=== PATIENT | male | born 1970 | race Caucasian/White ===

== ENCOUNTER 2019-01-01 21:00 | Observation (INO) | payer SELFPAY ==
[2019-01-01 21:01] VITALS: BP 145/101; PULSE 94; RESP 16; TEMP 36.5; O2SAT 98; BMI 26.8
[2019-01-01 21:04] VITALS: RESP 16
--- NOTE | 2019-01-01 21:36 | EKG12_ITS ---
Test Reason : Blood Pressure : / mmHG Vent. Rate : 065 BPM Atrial Rate : 065 BPM P-R Int : 148 ms QRS Dur : 082 ms QT Int : 408 ms P-R-T Axes : 062 039 032 degrees QTc Int : 424 ms Normal sinus rhythm Normal ECG Confirmed by FRANSISCO DEL REAL, DANIELLE ([id number]), manuscript editor FESTUS CARR ([id number]) on 01/03/2019 8:59:09 AM Referred By: WILLIE Confirmed By:DANIELLE MOODY MD
--- NOTE | 2019-01-01 21:38 | ED.VIS.GEN ---
History of Present Illness Chief Complaint: Syncope Detail of Chief Complaint: X4 Informant: Patient Onset: Today Timing: Intermittent Quality: Lightheaded preceding syncopal episode Location: Once at work and 4 times at home Current Severity: Mild Maximum Severity: Severe Worsened by: Nothing Relieved by: Nothing Associated Symptoms: Chest pain and left upper extremity tingling Narrative: Patient is a 48-year-old male who smokes 1/2 pack/day presents with syncopal episode. He states while at work at approximately 930 to 10:30 AM he became lightheaded. He did not think much of it. On his way into his home after work he became lightheaded and was concerned he would pass out. He was concerned he would fall and l lied on the floor. He took off his shoes. states he was diaphoretic. He reported central chest pain and left arm tingling. He was out for several minutes. There was no seizure activity noted. There is no incontinence of urine or stool. He had 3 additional episodes. One occurred after walking down the steps one occurred while in the shower and one occurred after he walked up to his bedroom. Those episodes were not witnessed. He denies black or maroon stool. He presently denies shortness of breath or chest pain. There is no family history of coronary disease. He has no history of PE or DVT. He denies leg pain, swelling or discoloration. Prior similar symptoms: No Recent Illness/Hospitalization: No - Past Medical History (1) No significant past medical history Status: Acute Past Medical History - Allergies and Home Meds Allergies/Adverse Reactions: Allergies aspirin Adverse Reaction (Verified 01/01/19 21:23) Other NOSEBLEED Primary Care Physician: Care Physician,No Primary [Primary Care Provider] - Prior records reviewed: No - There are none Past Medical History: None Surgical History: no surgical history Lives: Spouse/ Significant Other Smoking Status: Current every day smoker Alcohol: Sober Drugs: Marijuana Review of Systems General: Denies: Chills, Fever, Sweats Eyes: Denies: Visual changes - bilaterally, Diplopia ENT: Denies: Rhinorrhea, Sore throat Cardiovascular: Reports: Chest pain. Denies: Palpitations, Heart racing, -, - Respiratory: Reports: Dyspnea. Denies: Cough, Sputum, Dyspnea on exertion, Orthopnea, Paroxysmal nocturnal dyspnea, -, - Gastrointestinal: Denies: Abdominal pain, Nausea, Vomiting, Diarrhea, Melena, Hematochezia Genitourinary: Denies: Dysuria, Hematuria, Frequency Musculoskeletal: Denies: Myalgias, Arthralgias, Neck pain, Back pain, Swelling, Extremity Pain Skin: Denies: Rash, Abscess, Abrasions, Wounds Neurological: Denies: Headache, Weakness, Numbness Hematologic: Denies: Easy bruising, Easy bleeding Physical Exam Vital Signs/Narrative: Vital Signs Temp Pulse Resp BP Pulse Ox 01/01/19 21:04 16 01/01/19 21:01 97.7 F L 94 16 145/101 H 98 Inital Vital Signs reviewed: Yes General: Well nourished, Well developed, No Acute Distress Head: Normocephalic, Atraumatic Eyes: Perrl, EOMI ENT: Moist mucous membranes, No rhinorrhea Neck: Supple, Nontender Cardiovascular: Regular rate, Regular rhythm, No murmurs, Normal S1, Normal S2 Respiratory: No distress, CTA bilaterally, Chest nontender Abdomen: Soft, Nontender, Nondistended, Normal bowel sounds Back: Nontender, Normal Inspection Extremities: Nontender, No edema, - - There is no asymmetry, swelling, discoloration, leg vein distention, palpable cords or tenderness along the distribution of the deep venous system. Skin: Normal color, No rash, No Trauma. Negative for: Cyanosis, Diaphoresis, Jaundice Neurological: Alert, Oriented x3, Cranial nerves II-XII grossly intact, Normal Strength, Normal Sensation Psychological: Normal affect, Normal Mood Diagnostic/Tx/Re-eval Laboratory Results 01/01/19 01/01/19 21:30 21:30 WBC 11.4 H RBC 4.79 Hgb 15.0 Hct 43.6 MCV 91.0 MCH 31.3 MCHC 34.4 RDW Std Deviation 41.2 RDW Coeff of Chandni 12.3 Plt Count 205 MPV 10.7 Immature Gran % (Auto) 0.400 Neut % (Auto) 73.9 H Lymph % (Auto) 17.3 L [place] % (Auto) 7.5 Eos % (Auto) 0.5 Baso % (Auto) 0.4 Absolute Neuts (auto) 8.4 H Absolute Lymphs (auto) 1.98 Nucleated RBC % 0 Sodium 134 L Potassium 3.6 Chloride 105 Carbon Dioxide 20.0 L Anion Gap 9 BUN 23 H Creatinine 1.08 Estim Creat Clear Calc 81.81 Est GFR (MDRD) Af Amer 94 Est GFR (MDRD) Non-Af 78 BUN/Creatinine Ratio 21.3 H Glucose 113 H Calcium 8.9 Troponin I < 0.015 White count slightly elevated. This is nonspecific. Renal functions normal. First troponin is normal. - Medical Decision Making Symptoms are suggestive of vasovagal. However with the first episode occurring with activity he will need admission and work-up. He has had 4 separate episodes which is also concerning. Will obtain EKG and appropriate blood work. Once tests have been reviewed will contact hospitalist for admission. With one near syncopal episode for syncopal episodes and one with walking will need to admit patient for further monitoring and work-up i.e. echocardiogram. Hospitalist was paged. ED Disposition - Plan for ED Patient: Disposition: Acute Care Hospital [facility] Diagnosis: Syncope and collapse Referrals: Care Physician,No Primary [Primary Care Provider] -
[2019-01-01] MEDS: 0.9% Normal Saline 1,000 ML 250 ML IV (21:49)
[2019-01-01 21:57] LABS: Absolute Lymphocyte Count 1.98 X10^3/uL (0.83-4.51); Absolute Neutrophil Count 8.4 X10^3/uL (2.0-7.7); Basophil# 0.05 X10^3/uL; Basophil% 0.4 % (0-1); Eosinophil# 0.06 X10^3/uL; Eosinophils% 0.5 % (0-5); Hematocrit 43.6 % (40-54); Lymphocyte # 1.98 X10^3/ul (4.0); Lymphocyte % 17.3 % (19-41); Mean Corp Hgb Conc 34.4 g/dL (32-36); Mean Corpuscular Hgb 31.3 pg (27.0-32.0); Mean Platelet Vol. 10.7 fl (6.2-12.0); Monocyte# 0.86 X10^3/uL; Monocyte% 7.5 % (0-10); NRBC Flagged by Analyzer 0 % (0-5); Neutrophil # 8.43 X10^3/uL (2.7-7.7); Neutrophil % 73.9 % (47-70); Platelet Count 205 K/mm3 (150-450); RBC Distribution Width CV 12.3 % (11.6-14.6); RBC Distribution Width SD 41.2 fl (35.1-43.9); Red Blood Count 4.79 M/mm3 (4.6-6.2); White Blood Count 11.4 K/mm3 (4.4-11.0)
[2019-01-01 22:10] LABS: Anion Gap 9 (5-15); BUN 23 mg/dL (7-18); BUN/Creat Ratio 21.3 RATIO (10-20); Calcium,Total 8.9 mg/dL (8.5-10.1); Chloride 105 mmol/L (98-107); Creatinine, Serum 1.08 mg/dL (0.70-1.30); EST Glomerular Filtration Rate 78 mL/min (>60); Est Glom Filt Rate - Afr Amer 94 mL/min (>60); Estimated Creatinine Clearance 81.81 ml/min; Glucose 113 mg/dL (74-106); Potassium 3.6 mmol/L (3.5-5.1); Sodium Level 134 mmol/L (136-145)
--- NOTE | 2019-01-01 22:48 | ED.RN ---
PAGED HOSPITALIST FOR ADMISSION
--- NOTE | 2019-01-01 23:01 | PCM.HP.STD ---
Problem List (1) Smoker Status: Chronic (2) Syncope and collapse Status: Acute History of Present Illness Date of Admission: 01/01/19 Chief Complaint: syncope , chest pain The patient is a 48 year old M [male patient with no past medical history who is a chronic smoker presents to the emergency room after several episodes of syncope earlier today. Onset of this dizziness began this morning around 930 while at work he sat down to take a break he described to his employer as feeling dizzy and lightheaded yet he did not pass out at that time. He recovered from that episode and was feeling better by noon and continue to work throughout the day and finished the day only to arrive at home drenched in sweat and looking very tired and sweaty according to his spouse. He then went toward the bedroom after taking off his shirt and went toward the floor and passed out for period of 5 minutes according to his . After recover from this episode he took a shower and passed out there as well and states he had 2 more episodes of syncope after the shower. He then came to the emergency room for evaluation. With his last few episodes of syncope he describes chest heaviness and pressure with tingling in his left shoulder. No nausea vomiting or diarrhea. He does not have a normal primary care physician at this time and has not been seen for preventive care. He will be admitted to the progressive care unit for further cardiac work-up and observation.] Past Medical History Past Medical History (Chronic Problems): Chronic Problems Smoker (Chronic) Allergies aspirin Adverse Reaction (Verified 01/01/19 21:23) Other NOSEBLEED Home Medications: Ambulatory Orders Medication Instructions Recorded NK 01/01/19 Surgical History: no surgical history Lives: Spouse/ Significant Other Smoking Status: Current every day smoker Alcohol: Sober Drugs: Marijuana - *Family History Maternal History Items: No pertinent history Review of Systems Constitutional: Denies: Chills, Fever, Weight Change HEENT: Denies: Head Aches, Sinus Congestion, Sinus Drainage Cardiovascular: Reports: Chest Pain, Chest Pressure, Chest Tightness, Syncope. Denies: Palpitations Respiratory: Denies: Cough, Shortness of breath at rest, Sputum production Gastrointestinal: Denies: Abdominal Pain, Nausea, Vomiting Genitourinary: Denies: Dysuria Musculoskeletal: Denies: Joint Pain, Joint Tenderness Skin: Denies: Rash, Wounds Neurological: Denies: Numbness, Tingling, Focal weakness Psychiatric: Denies: Anxiety, Depression, Homicidal Ideations, Suicidal Ideations Hematologic/ Lymphatic: Denies: Easy Bruising, Easy Bleeding VTE Information - Inpt Only VTE Present on Admission: No VTE Mechan Device Prophylaxis: None VTE Pharm Prophylaxis ordered?: Yes Patient Problems: Active and Suspected Problems No significant past medical history (Acute) Syncope and collapse (Acute) - Physical Exam General: Alert, Oriented x3, Cooperative HEENT: Atraumatic, PERRLA, EOMI, Normocephalic Neck: Supple Lungs: Clear to auscultation, Normal air movement, No rhonchi, No wheeze, No rales Cardiovascular: Regular rate, Regular Rhythm, Normal S1, Normal S2, No murmurs Abdomen: Bowel Sounds Present, Soft, Non Tender Extremities: No edema Skin: No rashes, No breakdown Musculoskeletal: No Tenderness to Palpation of Joints or Extremities Neurological: Cranial nerves II-XII grossly intact Psych/Mental Status: Normal Affect, Appropriate Vital Signs Temp Pulse Resp BP Pulse Ox 97.7 F L 94 16 145/101 H 98 01/01/19 21:01 01/01/19 21:01 01/01/19 21:04 01/01/19 21:01 01/01/19 21:01 Oxygen Delivery Method Room Air Weight: 176 lb 9.444 oz Body Mass Index (BMI) 26.8 Laboratory Tests Past 24 Hrs 01/01/19 01/01/19 21:30 21:30 WBC 11.4 H RBC 4.79 Hgb 15.0 Hct 43.6 MCV 91.0 MCH 31.3 MCHC 34.4 RDW Std Deviation 41.2 RDW Coeff of [place] 12.3 Plt Count 205 MPV 10.7 Immature Gran % (Auto) 0.400 Neut % (Auto) 73.9 H Lymph % (Auto) 17.3 L [place] % (Auto) 7.5 Eos % (Auto) 0.5 Baso % (Auto) 0.4 Absolute Neuts (auto) 8.4 H Absolute Lymphs (auto) 1.98 Nucleated RBC % 0 Sodium 134 L Potassium 3.6 Chloride 105 Carbon Dioxide 20.0 L Anion Gap 9 BUN 23 H Creatinine 1.08 Estim Creat Clear Calc 81.81 Est GFR (MDRD) Af Amer 94 Est GFR (MDRD) Non-Af 78 BUN/Creatinine Ratio 21.3 H Glucose 113 H Calcium 8.9 Troponin I < 0.015 Assessment/Plan All Active Problems No significant past medical history (Acute) Syncope and collapse (Acute) Plan 1. Chest pain?admit to progressive care unit, cycle cardiac markers, or size nuclear stress test in the a.m. we will order as needed nitroglycerin, start aspirin 81 mg daily check fasting lipid profile CBC BMP in the morning 2. Syncope continue telemetry monitoring for any further episodes continue rehydration, patient states he feels much better at this time after having received IV fluids 3. Smoking?cessation strongly encouraged 4. DVT prophylaxis?low molecular weight heparin Code Visit OBSV E&M: [id number] Initial observation care L2
[2019-01-01 23:12] VITALS: BP 139/84; PULSE 64; RESP 18; O2SAT 96
[2019-01-01 23:23] VITALS: BP 139/84; PULSE 75; RESP 16; O2SAT 98
[2019-01-01 23:40] VITALS: BP 120/74; PULSE 72; RESP 16; TEMP 36.7; O2SAT 97
[2019-01-01 23:42] VITALS: BP 131/68
[2019-01-01 23:53] VITALS: BMI 26.9
[2019-01-01 23:57] VITALS: BMI 26.9
[2019-01-02 00:03] VITALS: PULSE 77
--- NOTE | 2019-01-02 00:25 | EKG12_ITS ---
Test Reason : CP ADMISSION Blood Pressure : / mmHG Vent. Rate : 067 BPM Atrial Rate : 067 BPM P-R Int : 148 ms QRS Dur : 088 ms QT Int : 420 ms P-R-T Axes : 046 025 005 degrees QTc Int : 443 ms Normal sinus rhythm Normal ECG No previous ECGs available Confirmed by DANIEL HEADLEY ([id number]), non linear editor FESTUS CARR ([id number]) on 01/04/2019 2:54:59 PM Referred By: DANIELLE BHAGAT Confirmed By:DANIEL HEADLEY
[2019-01-02] MEDS: 0.9% Normal Saline 1,000 ML 125 ML IV (01:51)
[2019-01-02 03:00] VITALS: PULSE 59
[2019-01-02 03:44] LABS: Absolute Lymphocyte Count 2.59 X10^3/uL (0.83-4.51); Absolute Neutrophil Count 2.9 X10^3/uL (2.0-7.7); Basophil# 0.05 X10^3/uL; Basophil% 0.8 % (0-1); Eosinophil# 0.32 X10^3/uL; Eosinophils% 4.9 % (0-5); Hematocrit 40.9 % (40-54); Hemoglobin 14.1 g/dL (13.0-16.5); Lymphocyte # 2.59 X10^3/ul (4.0); Lymphocyte % 39.4 % (19-41); Mean Corp Hgb Conc 34.5 g/dL (32-36); Mean Corpuscular Hgb 31.6 pg (27.0-32.0); Mean Corpuscular Volume 91.7 fL (80-94); Mean Platelet Vol. 10.3 fl (6.2-12.0); Monocyte# 0.71 X10^3/uL; Monocyte% 10.8 % (0-10); NRBC Flagged by Analyzer 0 % (0-5); Neutrophil # 2.89 X10^3/uL (2.7-7.7); Neutrophil % 43.8 % (47-70); Platelet Count 178 K/mm3 (150-450); RBC Distribution Width CV 12.5 % (11.6-14.6); RBC Distribution Width SD 41.9 fl (35.1-43.9); Red Blood Count 4.46 M/mm3 (4.6-6.2); White Blood Count 6.6 K/mm3 (4.4-11.0)
[2019-01-02 04:04] LABS: BUN 17 mg/dL (7-18); BUN/Creat Ratio 19.4 RATIO (10-20); Calcium,Total 8.2 mg/dL (8.5-10.1); Chloride 110 mmol/L (98-107); Cholesterol 158 mg/dL (200); Creatinine, Serum 0.88 mg/dL (0.70-1.30); EST Glomerular Filtration Rate 99 mL/min (>60); Est Glom Filt Rate - Afr Amer 120 mL/min (>60); Glucose 82 mg/dL (74-106); Potassium 3.7 mmol/L (3.5-5.1); Sodium Level 141 mmol/L (136-145); Triglycerides 67 mg/dL
[2019-01-02 04:05] LABS: Anion Gap 8 (5-15); High Density Lipoprotein 38 mg/dL; Thyroid Stim Hormone (TSH) 0.48 uIU/mL (0.358-3.74); Very Low Density Lipoprotein 13 mg/dL (5-40)
[2019-01-02 05:29] VITALS: BP 124/78; PULSE 63; RESP 16; TEMP 37.2; O2SAT 98
--- NOTE | 2019-01-02 05:55 | EKG12_ITS ---
Test Reason : AM EKG Blood Pressure : / mmHG Vent. Rate : 065 BPM Atrial Rate : 065 BPM P-R Int : 150 ms QRS Dur : 086 ms QT Int : 406 ms P-R-T Axes : 052 035 030 degrees QTc Int : 422 ms Normal sinus rhythm Normal ECG When compared with ECG of 02-JAN-2019 00:16, MANUAL COMPARISON REQUIRED, DATA IS UNCONFIRMED Confirmed by DANIEL HEADLEY ([id number]), editor house organ FESTUS CARR ([id number]) on 01/04/2019 2:55:25 PM Referred By: OLAYINKA Confirmed By:DANIEL HEADLEY
--- NOTE | 2019-01-02 07:10 | PCM.PROGNOTE ---
Patient Problems: Active and Suspected Problems No significant past medical history (Acute) Syncope and collapse (Acute) Subjective: The patient is a 48-year-old male with no significant past medical history other than tobacco dependence, on no chronic medications, who presented to the emergency department at [facility] on 01/01/2019 complaining of episodic lightheadedness at work earlier in the day. He finished his shift and when he got home he was very sweaty and tired. He had a syncopal episode when walking to his bedroom and his stated he was out approximately 5 minutes. He awoke and went to take a shower and passed out in the shower. Following the shower he passed out 2 additional times and had chest pain with tingling in his left shoulder. He then decided to come to the ED. vital signs at presentation to the emergency room were temperature 97.7, pulse rate 94, blood pressure 145/101, respiratory rate 16 and he was 98% saturated on room air. Significant labs included a mildly elevated white blood cell count at 11.4 with 74% neutrophils, sodium of 134, serum bicarb of 20, BUN of 23 with creatinine of 1.08, troponin of less than 0.015. He was admitted to a monitored bed on PCU and serial cardiac enzymes were ordered. He was hydrated and scheduled for a stress test in the AM. - Physical Exam Vital Signs Temp Pulse Resp BP Pulse Ox 98.9 F 63 16 124/78 H 98 01/02/19 05:29 01/02/19 05:29 01/02/19 05:29 01/02/19 05:29 01/02/19 05:29 Oxygen Delivery Method Room Air Weight: 177 lb 0.499 oz Body Mass Index (BMI) 26.9 Intake and Output for Last 24 Hours 12/31/18 01/01/19 01/02/19 23:59 23:59 23:59 Intake Total 340 / 340 914 / 914 Balance 340 / 340 914 / 914 Laboratory Tests Past 24 Hrs 01/01/19 01/01/19 01/02/19 21:30 21:30 00:49 WBC 11.4 H RBC 4.79 Hgb 15.0 Hct 43.6 MCV 91.0 MCH 31.3 MCHC 34.4 RDW Std Deviation 41.2 RDW Coeff of Chandni 12.3 Plt Count 205 MPV 10.7 Immature Gran % (Auto) 0.400 Neut % (Auto) 73.9 H Lymph % (Auto) 17.3 L [place] % (Auto) 7.5 Eos % (Auto) 0.5 Baso % (Auto) 0.4 Absolute Neuts (auto) 8.4 H Absolute Lymphs (auto) 1.98 Nucleated RBC % 0 Sodium 134 L Potassium 3.6 Chloride 105 Carbon Dioxide 20.0 L Anion Gap 9 BUN 23 H Creatinine 1.08 Estim Creat Clear Calc 81.81 Est GFR (MDRD) Af Amer 94 Est GFR (MDRD) Non-Af 78 BUN/Creatinine Ratio 21.3 H Glucose 113 H Calcium 8.9 Troponin I < 0.015 < 0.015 Triglycerides Cholesterol LDL Cholesterol VLDL Cholesterol HDL Cholesterol TSH 01/02/19 01/02/19 03:30 03:30 WBC 6.6 RBC 4.46 L Hgb 14.1 Hct 40.9 MCV 91.7 MCH 31.6 MCHC 34.5 RDW Std Deviation 41.9 RDW Coeff of [place] 12.5 Plt Count 178 MPV 10.3 Immature Gran % (Auto) 0.300 Neut % (Auto) 43.8 L Lymph % (Auto) 39.4 [place] % (Auto) 10.8 H Eos % (Auto) 4.9 Baso % (Auto) 0.8 Absolute Neuts (auto) 2.9 Absolute Lymphs (auto) 2.59 Nucleated RBC % 0 Sodium 141 Potassium 3.7 Chloride 110 H Carbon Dioxide 23.0 Anion Gap 8 BUN 17 Creatinine 0.88 Estim Creat Clear Calc 100.40 Est GFR (MDRD) Af Amer 120 Est GFR (MDRD) Non-Af 99 BUN/Creatinine Ratio 19.4 Glucose 82 Calcium 8.2 L Troponin I < 0.015 Triglycerides 67 Cholesterol 158 LDL Cholesterol 107 VLDL Cholesterol 13 HDL Cholesterol 38 L TSH 0.48 Medical Necessity - Tobacco Use Smoking Status: Current every day smoker Assessment/Plan All Active Problems No significant past medical history (Acute) Syncope and collapse (Acute)
[2019-01-02 08:40] VITALS: PULSE 75
[2019-01-02] MEDS: 0.9% NaCl Peripheral Flush Adult/Peds IV (08:55)
--- NOTE | 2019-01-02 09:00 | STRESSREP_ITS ---
Stress Test Report Date: 01-02-19 Procedure: Exercise tolerance test/imaging study Indications: Chest pain; dizziness; syncope Consent: Per the patient Procedure: The patient exercised on a Jasmeet protocol for 10 minutes completing Stage III and 1 minute of Stage IV achieving a peak heart rate of 166 bpm (95 % predicted maximal heart rate) with a peak blood pressure 150/82 mmHg and a peak MET capacity of 11 METs. The baseline ECG demonstrated normal sinus rhythm. The peak exercise ECG demonstrated no obvious ECG changes. There were no cardiac dysrhythmias pretest, during exercise, or recovery. The functional capacity was considered good. There was no complaint of chest discomfort during exercise or recovery. The examination was discontinued secondary to dyspnea. Impression: 1. Technically adequate (percent predicted maximal heart rate greater than 85%) exercise tolerance test 2. Peak exercise ECG with no obvious ECG changes 3. There were no cardiac dysrhythmias pretest, during exercise, or recovery 4. Nuclear images pending Myocardial perfusion imaging study: Technique: The patient was injected with 11.5 mCi of technetium 99m Cardiolite and subsequently rest SPECT Cardiolite nuclear imaging was obtained in the horizontal long, vertical long, and short axis views. The patient exercised on a Jasmeet protocol for 10 minutes completing Stage III and 1 minute of Stage IV achieving a peak heart rate of 166 bpm (95 % predicted maximal heart rate) with a peak blood pressure 150/82 mmHg and a peak MET capacity of 11 METs. The patient was injected with 33.4 mCi of technetium 99m Cardiolite and subsequently stress SPECT Cardiolite nuclear imaging was obtained in the horizontal long, vertical long, and short axis views. A gated Cardiolite study at peak stress was obtained. Interpretation: Rest and stress SPECT Cardiolite nuclear imaging status post realignment, normalization, and attenuation correction, demonstrates the appearance of relative uniform tracer uptake and myocardial perfusion appearing within normal limits. There is end systolic thickening and brightening. The gated Cardiolite study demonstrates myocardial thickening and inward wall motion. The reported LVEF is 54 %. Impression: 1. Rest and stress SPECT Cardiolite nuclear imaging demonstrate relative uniform tracer uptake and myocardial perfusion appearing within normal limits. 2. The gated Cardiolite study reports an LVEF of 54 %. This note was generated with agreement24 [id number] software. It may contain incorrect words, spelling, and punctuation that were not noted in checking the note before signing.
[2019-01-02 10:10] VITALS: BP 121/76; PULSE 62; RESP 16; TEMP 36.5; O2SAT 99
[2019-01-02] MEDS: Enoxaparin 40 MG/0.4 ML Syringe SC (10:10)
[2019-01-02 10:12] VITALS: BP 121/76; BP 126/88; BP 131/88; PULSE 55; PULSE 62; PULSE 64
[2019-01-02 10:31] LABS: Bedside Glucose 83 mg/dL (70-110)
--- NOTE | 2019-01-02 14:29 | DCINST_ITS ---
- Discharge Diagnoses Current Active Problems: Current Active and Chronic Problems No significant past medical history (Acute) Syncope and collapse (Acute) Smoker (Chronic) You will use the following diet at home:: Other - stay away from simple carbs with a high glycemic index. Your food should be the consistency of: Regular Your liquids should be the consistency of: Regular/Thin Discharge Activity: Return to Normal Activity Call your doctor if you observe: Fever of 101 or Higher, Shortness of breath, Dizziness, Fainting spells, Swelling in the ankles, Chest pain, Calf discomfort Additional Instructions: You were dehydrated at admission to the hospital. Your kidney function was off and the sodium was low. I think this what caused you to pass out but, I can not prove this. When you are standing the blood goes to your feet and not to your head and you get lightheaded, sweaty, nauseated and then you pass out. Other things that can cause these symtoms are low blood sugars, problems with the rhythm of your heart, seizures.... You need to drinnk enough water during the day to keep the urine a pale yellow. If it is darker yellow or orange colored or tea colored then you are not drinnking enough. If you stay hydrated and you still have passing out episodes then we would need to do more testing......like an EEG to r/o seizures, an event monitor to monitor your heart rate for 30 days and we would need to check out the pancreas.....it produces insulin and sometimes you can have a tumor and it will secrete too much insulin and drop the blood sugars. Allergies/Adverse Reactions: Allergies aspirin Adverse Reaction (Verified 01/01/19 21:23) Other NOSEBLEED Medications to take at Discharge NK 01/01/19 Primary Care Physician: Care Physician,No Primary [Primary Care Provider] - Test Results: Test results from this visit will be discussed in further detail at your follow- up appointment, if applicable. Proposed Discharge Date: 01/02/19
--- NOTE | 2019-01-02 14:40 | DS.PCM_ITS ---
Discharge Date and Diagnosis - Problem List Patient Problems: Active and Suspected Problems Hyponatremia (Acute) Sinus bradycardia (Acute) Dehydration (Acute) Date of Admission: 01/01/19 Date of Discharge: 01/02/19 - Primary Discharge Diagnosis Active and Suspected Problems Hyponatremia (Acute)-resolved Sinus bradycardia (Acute)-asymptomatic Dehydration (Acute)-resolved Syncope and collapse (Acute) suspected to be due to orthostatic hypotension - Secondary Discharge Diagnosis Chronic Problems Smoker (Chronic) Reported Hypoglycemic episodes Hospital Course and Treatment Imaging Results: 01/02/19 05:55 Nuclear Stress Test - Treadmil [NM] AM (NON MEDS) Laboratory Tests 01/02/19 01/02/19 01/02/19 Range/Units 10:28 03:30 03:30 WBC 6.6 (4.4-11.0) K/mm3 RBC 4.46 L (4.6-6.2) M/mm3 Hgb 14.1 (13.0-16.5) g/dL Hct 40.9 (40-54) % MCV 91.7 (80-94) fL MCH 31.6 (27.0-32.0) pg MCHC 34.5 (32-36) g/dL RDW Std Deviation 41.9 (35.1-43.9) fl RDW Coeff of Chandni 12.5 (11.6-14.6) % Plt Count 178 (150-450) K/mm3 MPV 10.3 (6.2-12.0) fl Immature Gran % (Auto) 0.300 (0.0-0.9) % Neut % (Auto) 43.8 L (47-70) % Lymph % (Auto) 39.4 (19-41) % Potter % (Auto) 10.8 H (0-10) % Eos % (Auto) 4.9 (0-5) % Baso % (Auto) 0.8 (0-1) % Absolute Neuts (auto) 2.9 (2.0-7.7) X10^3/uL Absolute Lymphs (auto) 2.59 (0.83-4.51) X10^3/uL Nucleated RBC % 0 (0-5) % Sodium 141 (136-145) mmol/L Potassium 3.7 (3.5-5.1) mmol/L Chloride 110 H (98-107) mmol/L Carbon Dioxide 23.0 (21.0-32.0) mmol/L Anion Gap 8 (5-15) BUN 17 (7-18) mg/dL Creatinine 0.88 (0.70-1.30) mg/dL Estim Creat Clear Calc 100.40 ml/min Est GFR (MDRD) Af Amer 120 (>60) mL/min Est GFR (MDRD) Non-Af 99 (>60) mL/min BUN/Creatinine Ratio 19.4 (10-20) RATIO Glucose 82 (74-106) mg/dL Calcium 8.2 L (8.5-10.1) mg/dL Troponin I < 0.015 (<0.045) ng/mL Triglycerides 67 ( - 199) mg/dL Cholesterol 158 (200) mg/dL LDL Cholesterol 107 (0-130) mg/dL VLDL Cholesterol 13 (5-40) mg/dL HDL Cholesterol 38 L (40 - ) mg/dL TSH 0.48 (0.358-3.74) uIU/mL POC Glucose 83 (70-110) mg/dL 01/02/19 01/01/19 01/01/19 Range/Units 00:49 21:30 21:30 WBC 11.4 H (4.4-11.0) K/mm3 RBC 4.79 (4.6-6.2) M/mm3 Hgb 15.0 (13.0-16.5) g/dL Hct 43.6 (40-54) % MCV 91.0 (80-94) fL MCH 31.3 (27.0-32.0) pg MCHC 34.4 (32-36) g/dL RDW Std Deviation 41.2 (35.1-43.9) fl RDW Coeff of Chandni 12.3 (11.6-14.6) % Plt Count 205 (150-450) K/mm3 MPV 10.7 (6.2-12.0) fl Immature Gran % (Auto) 0.400 (0.0-0.9) % Neut % (Auto) 73.9 H (47-70) % Lymph % (Auto) 17.3 L (19-41) % Potter % (Auto) 7.5 (0-10) % Eos % (Auto) 0.5 (0-5) % Baso % (Auto) 0.4 (0-1) % Absolute Neuts (auto) 8.4 H (2.0-7.7) X10^3/uL Absolute Lymphs (auto) 1.98 (0.83-4.51) X10^3/uL Nucleated RBC % 0 (0-5) % Sodium 134 L (136-145) mmol/L Potassium 3.6 (3.5-5.1) mmol/L Chloride 105 (98-107) mmol/L Carbon Dioxide 20.0 L (21.0-32.0) mmol/L Anion Gap 9 (5-15) BUN 23 H (7-18) mg/dL Creatinine 1.08 (0.70-1.30) mg/dL Estim Creat Clear Calc 81.81 ml/min Est GFR (MDRD) Af Amer 94 (>60) mL/min Est GFR (MDRD) Non-Af 78 (>60) mL/min BUN/Creatinine Ratio 21.3 H (10-20) RATIO Glucose 113 H (74-106) mg/dL Calcium 8.9 (8.5-10.1) mg/dL Troponin I < 0.015 < 0.015 (<0.045) ng/mL Triglycerides ( - 199) mg/dL Cholesterol (200) mg/dL LDL Cholesterol (0-130) mg/dL VLDL Cholesterol (5-40) mg/dL HDL Cholesterol (40 - ) mg/dL TSH (0.358-3.74) uIU/mL POC Glucose (70-110) mg/dL none Operations: None Procedures: Stress test - Impression: 1. Rest and stress SPECT Cardiolite nuclear imaging demonstrate relative uniform tracer uptake and myocardial perfusion appearing within normal limits. 2. The gated Cardiolite study reports an LVEF of 54 %. Summary of Care Provided: The patient is a 48-year-old male with no significant past medical history other than tobacco dependence, on no chronic medications, who presented to the emergency department at [facility] on 01/01/2019 complaining of episodic lightheadedness at work earlier in the day. He finished his shift and when he got home he was very sweaty and tired. He had a syncopal episode when walking to his bedroom and his stated he was out approximately 5 minutes. He awoke and went to take a shower and passed out in the shower. Following the shower he passed out 2 additional times and had chest pain with tingling in his left shoulder. He then decided to come to the ED. vital signs at presentation to the emergency room were temperature 97.7, pulse rate 94, blood pressure 145/101, respiratory rate 16 and he was 98% saturated on room air. Significant labs included a mildly elevated white blood cell count at 11.4 with 74% neutrophils, sodium of 134, serum bicarb of 20, BUN of 23 with creatinine of 1.08, troponin of less than 0.015. He was admitted to a monitored bed on PCU and serial cardiac enzymes were ordered. He was hydrated and scheduled for a stress test in the AM. Telemetry overnight showed normal sinus rhythm and sinus bradycardia with no ectopy. Sinus bradycardia occurred while he was sleeping. On 01/02/2019 he had a treadmill nuclear stress test and exercised for 10 minutes on a standard Jasmeet protocol achieving a peak heart rate of 166 bpm which is 95% of his age- predicted maximum heart rate. The peak blood pressure was 150/82. Myocardial perfusion appeared to be within normal limits and the gated nuclear ejection fraction was 54%. Orthostatic vital signs on 01/02/2019 were negative for orthostatic hypotension. Smoking cessation counseling was given during his admission. He was discharged home on no medication. He was advised that if he has recurrent syncopal episodes he should return to the emergency room and at that point he would need a more extensive work-up which would include an event monitor and W/U for treatable causes of hypoglycemia. Patient Problems: Active and Suspected Problems Hyponatremia (Acute) Sinus bradycardia (Acute) Dehydration (Acute) - Physical Exam General: Alert, Oriented x3, Cooperative, No apparent distress HEENT: Atraumatic Oral: Moist Mucosa Neck: Supple, No JVD, Negative Carotid Bruits, Trachea Midline Lungs: Clear to auscultation Cardiovascular: Regular rate, Regular Rhythm, Normal S1, Normal S2, No murmurs, No Ectopic Activity, No rub noted, No Gallop Abdomen: Bowel Sounds Present, Soft, Non Tender, Non-Distended Extremities: No clubbing, No cyanosis, No edema, No Calf Tenderness, Peripheral Pulses Normal Neurological: Cranial nerves II-XII grossly intact, Neuro grossly intact Psych/Mental Status: Normal Affect, Appropriate Vital Signs Temp Pulse Resp BP Pulse Ox 97.7 F L 64 16 121/76 H 99 01/02/19 10:10 01/02/19 10:12 01/02/19 10:10 01/02/19 10:12 01/02/19 10:10 Oxygen Delivery Method Room Air Weight: 177 lb 0.499 oz Body Mass Index (BMI) 26.9 Orthostatic Vital Signs Start: 01/02/19 10:12 Freq: q24h Status: Active Protocol: Activity Type Activity Date Activity User E-Sign Co-Sign Detail Recorded Client Recorded Date Recorded By Document 01/02/19 10:12 AMG [id number] 01/02/19 10:14 AMG 01/02/19 10:12 Orthostatic Vitals Standing -Blood Pressure (90/60-120/80 mm Hg) 126/88 H -Extremity Use Right Arm -Pulse Rate (60-100 beats/min) 62 Sitting -Blood Pressure (90/60-120/80 mm Hg) 131/88 H -Extremity Use Right Arm -Pulse Rate (60-100 beats/min) 55 L Lying -Blood Pressure (90/60-120/80 mm Hg) 121/76 H -Extremity Use Right Arm -Pulse Rate (60-100 beats/min) 64 Intake and Output for Last 24 Hours 12/31/18 01/01/19 01/02/19 23:59 23:59 23:59 Intake Total 340 / 340 1660 / 1660 Balance 340 / 340 1660 / 1660 Laboratory Tests Past 24 Hrs 01/01/19 01/01/19 01/02/19 21:30 21:30 00:49 WBC 11.4 H RBC 4.79 Hgb 15.0 Hct 43.6 MCV 91.0 MCH 31.3 MCHC 34.4 RDW Std Deviation 41.2 RDW Coeff of Chandni 12.3 Plt Count 205 MPV 10.7 Immature Gran % (Auto) 0.400 Neut % (Auto) 73.9 H Lymph % (Auto) 17.3 L Potter % (Auto) 7.5 Eos % (Auto) 0.5 Baso % (Auto) 0.4 Absolute Neuts (auto) 8.4 H Absolute Lymphs (auto) 1.98 Nucleated RBC % 0 Sodium 134 L Potassium 3.6 Chloride 105 Carbon Dioxide 20.0 L Anion Gap 9 BUN 23 H Creatinine 1.08 Estim Creat Clear Calc 81.81 Est GFR (MDRD) Af Amer 94 Est GFR (MDRD) Non-Af 78 BUN/Creatinine Ratio 21.3 H Glucose 113 H Calcium 8.9 Troponin I < 0.015 < 0.015 Triglycerides Cholesterol LDL Cholesterol VLDL Cholesterol HDL Cholesterol TSH 01/02/19 01/02/19 03:30 03:30 WBC 6.6 RBC 4.46 L Hgb 14.1 Hct 40.9 MCV 91.7 MCH 31.6 MCHC 34.5 RDW Std Deviation 41.9 RDW Coeff of Chandni 12.5 Plt Count 178 MPV 10.3 Immature Gran % (Auto) 0.300 Neut % (Auto) 43.8 L Lymph % (Auto) 39.4 Potter % (Auto) 10.8 H Eos % (Auto) 4.9 Baso % (Auto) 0.8 Absolute Neuts (auto) 2.9 Absolute Lymphs (auto) 2.59 Nucleated RBC % 0 Sodium 141 Potassium 3.7 Chloride 110 H Carbon Dioxide 23.0 Anion Gap 8 BUN 17 Creatinine 0.88 Estim Creat Clear Calc 100.40 Est GFR (MDRD) Af Amer 120 Est GFR (MDRD) Non-Af 99 BUN/Creatinine Ratio 19.4 Glucose 82 Calcium 8.2 L Troponin I < 0.015 Triglycerides 67 Cholesterol 158 LDL Cholesterol 107 VLDL Cholesterol 13 HDL Cholesterol 38 L TSH 0.48 POC Glucose 01/02/19 10:28 POC Glucose 83 Discharge Activity: Return to Normal Activity Call your doctor if you observe: Fever of 101 or Higher, Shortness of breath, Dizziness, Fainting spells, Swelling in the ankles, Chest pain, Calf discomfort Home Medications: Medications to take at Discharge NK 01/01/19 Primary Care Physician: Care Physician,No Primary [Primary Care Provider] - Disposition: Home Minutes spent on discharge:: 30 Patient Condition:: Good Medical Necessity - Tobacco Use Smoking Status: Current every day smoker Tobacco Use: Cigarettes Meaningful Use Info Meaningful Use Diagnoses (Choose all that apply): None applicable Code Visit OBSV E&M: 65088 Observation care discharge
== END 2019-01-02 14:39 | disposition home or self-care (01) ==
LOC: ED 22:48 → PCU 01-02 00:38
PROVIDERS: Admitting Provider Family Medicine; Emergency Provider Emergency Medicine; Visit Provider Internal Medicine
DX: R55 Syncope and collapse (principal); R07.89 Other chest pain; F17.210 Nicotine dependence, cigarettes, uncomplicated; E86.0 Dehydration; E87.1 Hypo-osmolality and hyponatremia
CPT/HCPCS: 36415; 78452; 80048; 80061; 82962; 84443; 84484; 85025; 93005; 93017; 96360; 96361; 96372; 97802; 99218; 99285; 99406; A9500; J7030; A4216; G0378